=== PATIENT | female | born 1960 | race Caucasian/White ===

== ENCOUNTER 2021-06-19 19:58 | Emergency (ER) | payer MEDICARE ==
[~2021-06-19] VITALS: Ht 160 cm; Wt 62.5 kg
[2021-06-19 21:43] LABS: UA COLLECTION TYPE CLN CATCH MIDSTREAM
[2021-06-19 21:44] LABS: CLARITY,URINE CLEAR (Clear); COLOR,URINE YELLOW (Yellow); GLUCOSE, URINE NEGATIVE (Neg); KETONES,URINE NEGATIVE (Neg); LEUKOCYTE ESTERASE ,URINE NEGATIVE (Neg); NITRITES, URINE NEGATIVE (Neg); OCCULT BLOOD,URINE NEGATIVE (Neg); PROTEIN,URINE NEGATIVE (Neg); UROBILINOGEN,URINE 0.2 E.U/dL (0.2-1.0)
[2021-06-19] MEDS ORDERED: DOXE50CA4 PO (21:44)
[2021-06-19] MEDS ORDERED: LITH150C8 PO (21:44)
[2021-06-19] MEDS ORDERED: TEMA30CA PO (21:44)
[2021-06-19] MEDS ORDERED: PRAZ1CAP5 PO (21:44)
[2021-06-19] MEDS ORDERED: PROP10TA10 PO (21:44)
[2021-06-19 21:58] LABS: URINE AMPHETAMINE SCREEN NEGATIVE (Neg); URINE BARBITUATE SCREEN NEGATIVE (Neg); URINE BENZODIAZEPINES SCREEN NEGATIVE (Neg); URINE CANNABINOID SCREEN POSITIVE (Neg); URINE COCAINE SCREEN NEGATIVE (Neg); URINE METHADONE SCREEN NEGATIVE (Neg); URINE OPIATE SCREEN NEGATIVE (Neg); URINE PHENCYCLIDINE SCREEN NEGATIVE (Neg)
[2021-06-19 22:05] LABS: BASOPHILS % (AUTO) 0.2 % (0-1); EOSINOPHILS % (AUTO) 1.2 % (0-6); HEMATOCRIT 41.6 % (35.0-45.0); HEMOGLOBIN 13.6 g/dl (12.0-16.0); LYMPHOCYTES # (AUTO) 1.2 X10'3 (1.1-4.8); LYMPHOCYTES % (AUTO) 30.6 % (21-51); MEAN CORPUSCULAR HEMOGLOBIN 29.4 PG (27.0-31.0); MEAN CORPUSCULAR HGB CONC 32.6 g/dL (33.0-36.5); MEAN CORPUSCULAR VOLUME 90.1 FL (78-98); MEAN PLATELET VOLUME 8.2 FL (7.4-10.4); MONOCYTES # (AUTO) 0.3 X10'3 (0-0.9); MONOCYTES % (AUTO) 6.8 % (2-12); NEUTROPHILS # (AUTO) 2.5 X10'3 (1.8-7.7); NEUTROPHILS % (AUTO) 61.2 % (42-75); PLATELET COUNT 181 X10'3 (140-440); RED BLOOD COUNT 4.62 X10'6 (4.20-5.60); RED CELL DISTRIBUTION WIDTH 14.5 % (11.5-14.5)
[2021-06-19] MEDS ORDERED: propranolol 10mg tablet PO PRN (22:10)
[2021-06-19] MEDS ORDERED: lithium carbonate 150mg capsule PO SCH (22:15)
[2021-06-19] MEDS ORDERED: prazosin 1mg capsule PO SCH (22:15)
[2021-06-19] MEDS ORDERED: doxepin 25mg capsule PO SCH (22:15)
[2021-06-19] MEDS ORDERED: temazepam 15mg capsule PO SCH (22:20)
[2021-06-19 22:21] LABS: ALANINE AMINOTRANSFERASE 17 U/L (12-78); ALBUMIN/GLOBULIN RATIO 1.2 (1.1-1.5); ALKALINE PHOSPHATASE 95 IU/L (46-116); ANION GAP 10 (8-16); ASPARTATE AMINO TRANSFERASE 12 U/L (10-37); BILIRUBIN,TOTAL 0.2 MG/DL (0.1-1.0); BLOOD UREA NITROGEN 14 MG/DL (7-18); BUN/CREATININE RATIO 13.7 (6.6-38.0); CALCIUM 9.3 MG/DL (8.5-10.1); CHLORIDE 109 MMOL/L (99-107); CREATININE 1.02 MG/DL (0.40-0.90); GLUCOSE 84 MG/DL (70-104); POTASSIUM 3.7 MMOL/L (3.5-5.1); SODIUM 145 MMOL/L (135-145); TOTAL CARBON DIOXIDE 25.7 MMOL/L (24-32); TOTAL PROTEIN 7.4 G/DL (6.4-8.2); eGFR 55 ML/MIN
--- NOTE | 2021-06-19 22:57 | NUR ---
pt is depressed about her 's infidelity, believes she will hurt herself if she goes home. pt reports "over 40 suicide attempts." Pt denies medical hx except for bilateral hip replacements. pt has hx of depression. pt is lying in bed now, all hs meds given.
--- NOTE | 2021-06-20 01:15 | NUR ---
pt continues to sleep, no s/s of distress noted.
--- NOTE | 2021-06-20 02:28 | NUR ---
pt continues to sleep, no s/s of distress noted.
--- NOTE | 2021-06-20 05:22 | NUR ---
pt is sleeping, rr unlabored.
[2021-06-20 06:03] VITALS: BP 105/60
[2021-06-20] MEDS ORDERED: acetaminophen 325mg tablet PO ONE (08:15)
--- NOTE | 2021-06-20 13:41 | NUR ---
Pt came up to desk asking why she was on a hold as she didn't know she was placed on a hold as she did not express she was suicidal. Pt saying she wasn't told anything and if she wasn't on a hold she could just go. [facility] has called several times to get the packet sent over. Waiting for MD to medically clear pt.
== END 2021-06-20 17:07 | disposition home or self-care (01) ==
LOC: ER 20:00
DX: R45.851 Suicidal ideations (principal); Z20.822 Contact with and (suspected) exposure to COVID-19; F31.9 Bipolar disorder, unspecified; Z79.899 Other long term (current) drug therapy
CPT/HCPCS: 36415; 80053; 80305; 81003; 84439; 84443; 85025; 87635; 99285; C9803